=== PATIENT | female | born 1960 | race Hispanic/Latino ===

== ENCOUNTER → 2024-09-05 | Outpatient (CLI) | payer MEDICARE ==
--- NOTE | 2024-09-05 11:09 | HMCSR ---
APPROVED REPORT Laterality: Bilateral VELOCITY AND DOPPLER WAVEFORM ANALYSIS CASH APPLICATION REPRESENTATIVE (R) 158.2cm/sec, Triphasic, CASH APPLICATION REPRESENTATIVE (L) 124.2cm/sec, Biphasic, Prof Fem Art. (R) 66.0cm/sec, Biphasic, Prof Fem Art. (L) 69.0cm/sec, Biphasic, Fem Art Prox. (R) 110.0cm/sec, Triphasic, Fem Art Prox. (L) 124.2cm/sec, Triphasic, Fem Art Mid. (R) 85.7cm/sec, Triphasic, Fem Art Mid. (L) 85.6cm/sec, Biphasic, Fem Art Dist (R) 78.7cm/sec, Triphasic, Fem Art Dist. (L) 73.2cm/sec, Biphasic, Pop Art(AK) (R) 52.1cm/sec, Triphasic, Pop Art (AK) (L) 59.4cm/sec, Biphasic, Pop Art (Fossa)(R) 49.8cm/sec, Biphasic, Pop Art (Fossa) (L) 51.1cm/sec, Biphasic, Pop Art(BK) (R) 72.9cm/sec, Biphasic, Pop Art (BK) (L) 56.6cm/sec, Biphasic, NEWS SPECIALIST Prox. (R) 34.7cm/sec, Biphasic, NEWS SPECIALIST Prox. (L) 113.2cm/sec, Triphasic, NEWS SPECIALIST Mid. (R) 28.9cm/sec, Biphasic, NEWS SPECIALIST Mid. (L) 117.3cm/sec, Triphasic, NEWS SPECIALIST Dist. (R) 84.5cm/sec, Biphasic, NEWS SPECIALIST Dist. (L) 75.4cm/sec, Triphasic, Per Art Dist. (R) 26.0cm/sec, Biphasic, Per Art Dist. (L) 39.5cm/sec, Biphasic, JOHN PAUL Prox. (R) 108.8cm/sec, Triphasic, JOHN PAUL Prox. (L) 70.0cm/sec, Biphasic, JOHN PAUL Mid. (R) 101.9cm/sec, Triphasic JOHN PAUL Mid. (L) 40.4cm/sec, Biphasic, JOHN PAUL Dist. (R) 75.3cm/sec, Triphasic, JOHN PAUL Dist. (L) 30.5cm/sec, Dampened, biphasic Technologist Impression There is no evidence of significant stenosis in the bilateral lower extremities. The left anterior tibial artery appears atrophied. Conclusion There is no evidence of significant stenosis in the bilateral lower extremities. The left anterior tibial artery appears atrophied. Conclusion There is no evidence of significant stenosis in the bilateral lower extremities. The left anterior tibial artery appears atrophied.
== END | disposition home or self-care (01) ==
LOC: SHCH 09:41
PROVIDERS: ATTEND Internal Medicine Cardiovascular Disease
DX: I73.9 Peripheral vascular disease, unspecified (principal)
CPT/HCPCS: 93925

== ENCOUNTER → 2025-08-22 | Outpatient (CLI) | payer MEDICARE ==
[~2025-08-22] MED LIST: AEC81 PO; AMLO-257 PO; CLON0.5T4 PO; LOSA100T59 PO
[2025-08-22 22:55] VITALS: PULSE 93; RESP 38
[2025-08-22 23:30] VITALS: PULSE 69; RESP 19
[2025-08-22 23:41] VITALS: PULSE 67; RESP 16
[2025-08-23] VITALS (12 sets, daily range): PULSE 59–71; RESP 13–26
== END | disposition home or self-care (01) ==
LOC: SLP 20:35
PROVIDERS: ATTEND Internal Medicine Cardiovascular Disease
DX: G47.33 Obstructive sleep apnea (adult) (pediatric) (principal); R06.83 Snoring; R09.02 Hypoxemia; I10 Essential (primary) hypertension; M54.2 Cervicalgia; R45.1 Restlessness and agitation; R51.9 Headache, unspecified
CPT/HCPCS: 95811